=== PATIENT | male | born 1955 | race African-American/Black ===

== ENCOUNTER 2016-10-17 14:02 | Inpatient (IN) | payer OTHER ==
[2016-10-17 14:15] VITALS: BMI 26.6
[2016-10-17] MEDS ORDERED: MAG HYDROX/AL HYDROX/SIMETH 30 ML UNIT-DOSE CUP PO PRN (17:31)
[2016-10-17] MEDS ORDERED: IBUPROFEN 400 MG TABLET (FP) PO PRN (17:31)
[2016-10-17] MEDS ORDERED: MAGNESIUM HYDROX 2400MG/30ML ORAL SUSPENSION 30 ML CUP PO PRN (17:31)
[2016-10-17] MEDS ORDERED: LOPERAMIDE HCL 2 MG CAPSULE PO PRN (17:31)
[2016-10-17] MEDS ORDERED: ACETAMINOPHEN 325 MG TABLET (FP) PO PRN (17:31)
[2016-10-17] MEDS ORDERED: guaiFENesin/D-METHORPHAN HB 10 ML UNIT-DOSE CUPS PO PRN (17:31)
[2016-10-17] MEDS ORDERED: NICOTINE POLACRILEX 2 MG GUM BC PRN (17:31)
[2016-10-17] MEDS ORDERED: MAGNESIUM CITRATE 300 ML BOTTLE PO PRN (17:31)
--- NOTE | 2016-10-17 17:40 | HP ---
Admission [facility] - [facility] Chief Complaint: requesting inpatient rehab after detoxification from heroin at [place] Allergies/Adverse Reactions: Allergies Allergy/AdvReac Type Severity Reaction Status Date / Time cephalexin monohydrate Allergy Severe Hives Verified 10/17/16 16:26 [From Keflex] egg Allergy Severe Hives Verified 10/17/16 16:26 History of Present Illness: 61yo m with h/o chronic opioid dependnece, cocaine abuse and nicotine dependence PMHx HTN, PPD+ CXR neg does ot have cpy with him no h/o seizures or DTS does not use alcohol , marijauan or PCP Exam Limitations: No Limitations - Ebola screening Have you traveled outside of the country in the last 21 days: No Have you had contact with anyone from an Ebola affected area: No Have you been sick,other than usual withdrawal symptoms: No Do you have a fever: No - Review of Systems Constitutional: No Symptoms Reported EENT: reports: Nose Congestion Respiratory: reports: No Symptoms reported Cardiac: reports: No Symptoms Reported GI: reports: Diarrhea, Nausea, Poor Appetite, Poor Fluid Intake, Abdominal cramping : reports: No Symptoms Reported Musculoskeletal: reports: Back Pain, Joint Pain, Muscle Pain, Neck Pain Integumentary: reports: Sweating Neuro: reports: Tremors, Weakness Endocrine: reports: No Symptoms Reported Hematology: reports: No Symptoms Reported Psychiatric: reports: Judgement Intact, Mood/Affect Appropiate, Orientated x3, Anxious, Depressed Other Systems: Reviewed and Negative Patient History - Patient Medical History Hx Anemia: No Hx Asthma: No Hx Chronic Obstructive Pulmonary Disease (COPD): No Hx Cancer: No Hx Cardiac Disorders: No Hx Congestive Heart Failure: No Hx Hypertension: Yes (on verapamil) Hx Hypercholesterolemia: No Hx Pacemaker: No HX Cerebrovascular Accident: No Hx Seizures: No Hx Dementia: No Hx Diabetes: No Hx Gastrointestinal Disorders: No Hx Liver Disease: No Hx Genitourinary Disorders: No Hx Sexually Transmitted Disorders: No Hx Renal Disease (ESRD): No Hx Thyroid Disease: No Hx Human Immunodeficiency Virus (HIV): No Hx Hepatitis C: No Hx Depression: No Hx Suicide Attempt: No Hx Bipolar Disorder: No Hx Schizophrenia: No - Patient Surgical History Hx Abdominal Surgery: Yes (hernia 2001) Anesthesia Reaction: No - PPD History Previous Implant?: Yes Documented Results: Positive w/o proof Implanted On Prior [facility] Admission?: No PPD to be Administered?: No - Reproductive History Patient is a Female of Child Bearing Age (11 -55 yrs old): No Patient : No - Smoking Cessation Smoking history: Current every day smoker Have you smoked in the past 12 months: Yes Aproximately how many cigarettes per day: 6 Hx Chewing Tobacco Use: No Initiated information on smoking cessation: Yes 'Breaking Loose' booklet given: 10/17/16 - Substance & Tx. History Hx Alcohol Use: No Hx Substance Use: Yes Substance Use Type: Cocaine, Heroin, Opiates, Prescribed Hx Substance Use Treatment: Yes - Substances Abused Heroin Route: Inhalation Frequency: Daily Amount used: 8-10 bags Age of first use: 22 Date of Last Use: 11/11/16 Cocaine Route: Inhalation Frequency: 1-3 times last 30 days Amount used: $100/day Age of first use: 37 Date of Last Use: 11/11/16 Family Disease History - Family Disease History Family Disease History: Heart Disease: Father (alcoholic), Mother Admission Physical Exam [facility] - Vital Signs Vital Signs: Vital Signs - 24 hr 10/17/16 14:13 Temperature 97 F L Pulse Rate 78 Respiratory 20 Rate Blood Pressure 168/91 - Physical General Appearance: Yes: Within Normal Limits, No Apparent Distress, Nourished, Appropriately Dressed, Thin HEENTM: Yes: EOMI, Hearing grossly Normal, Normal ENT Inspection, Normocephalic , Normal Voice, SANDOVAL, Pharynx Normal, Nasal Congestion Respiratory: Yes: Within Normal Limits, Chest Non-Tender, Lungs Clear, Normal Breath Sounds, No Respiratory Distress, No Accessory Muscle Use Neck: Yes: Within Normal Limits, No masses,lesions,Nodules, Supple, Trachea in good position Breast: Yes: Breast Exam Deferred Cardiology: Yes: Within Normal Limits, Regular Rhythm, Regular Rate, S1, S2 Abdominal: Yes: Normal Bowel Sounds, Non Tender, Flat, Soft, Increased Bowel Sounds Genitourinary: Yes: Within Normal Limits Back: Yes: Within Normal Limits, Normal Inspection Musculoskeletal: Yes: full range of Motion, Gait Steady, Pelvis Stable, Back pain (muscl;e tenderness on deep palpation) Extremities: Yes: Within Normal Limits, Normal Capillary Refill, Normal Inspection, Normal Range of Motion, Non-Tender Neurological: Yes: data technician II-XII NML intact, Fully Oriented, Alert, Motor Strength 5/5, Normal Response, Depressed Affect Integumentary: Yes: Within Normal Limits, Normal Color, Dry, Warm Lymphatic: Yes: Within Normal Limits - Addiitonal Findings: minor withdrawal sx still present, medically stable - Diagnostic (1) Cocaine abuse Current Visit: Yes Status: Inactive (2) Hypertension Current Visit: Yes Status: Chronic (3) Nicotine dependence Current Visit: Yes Status: Chronic (4) Opioid dependence Current Visit: Yes Status: Chronic Qualifiers: Substance use status: uncomplicated Qualified Code(s): F11.20 - Opioid dependence, uncomplicated Cleared for Admission [facility] - Detox or Rehab Claeared for Rehab Admission: Yes [facility] Breath Alcohol Content Breath Alcohol Content: 0 Urine Drug Screen - Results Drug Screen Negative: No Urine Drug Screen Results: VIOLET-Cocaine, MTD-Methadone
[2016-10-17] MEDS: NICOTINE 14 MG/24 HOURS TOPICAL PATCH TD SCH (19:14)
[2016-10-17] MEDS: CYCLOBENZAPRINE HCL 10 MG TABLET (FP) PO SCH ×2 (19:45→21:30)
[2016-10-17] MEDS: cloNIDine HCL 0.1 MG TABLET PO SCH ×2 (19:46→21:27)
[2016-10-17] MEDS: VERAPAMIL HCL 120 MG TABLET PO SCH ×2 (21:25→21:27)
[2016-10-17] MEDS: THIAMINE HCL 100 MG TABLET (FP) PO SCH (21:25)
[2016-10-17] MEDS: NAPROXEN 500 MG TABLET (FP) PO SCH (21:26)
[2016-10-17 21:42] LABS: URINE APPEARANCE CLEAR; URINE BILIRUBIN NEGATIVE (NEGATIVE); URINE BLOOD NEGATIVE (NEGATIVE); URINE COLOR LT. YELLOW; URINE GLUCOSE (UA) NEGATIVE (NEGATIVE); URINE KETONE NEGATIVE (NEGATIVE); URINE LEUK ESTERASE NEGATIVE (NEGATIVE); URINE NITRITE NEGATIVE (NEGATIVE); URINE PROTEIN NEGATIVE (NEGATIVE); URINE UROBILINOGEN 0.2 mg/dL (0.2-1.0)
[2016-10-17] MEDS ORDERED: cloNIDine HCL 0.1 MG TABLET PO SCH (22:00)
[2016-10-17] MEDS ORDERED: CYCLOBENZAPRINE HCL 10 MG TABLET (FP) PO SCH (22:00)
[2016-10-17] MEDS ORDERED: VERAPAMIL HCL 120 MG TABLET PO SCH (22:00)
[2016-10-18] MEDS: VERAPAMIL HCL 120 MG TABLET PO SCH ×3 (06:43→21:30)
[2016-10-18] MEDS: CYCLOBENZAPRINE HCL 10 MG TABLET (FP) PO SCH ×3 (06:43→21:30)
[2016-10-18] MEDS: NICOTINE 14 MG/24 HOURS TOPICAL PATCH TD SCH (10:10)
[2016-10-18] MEDS: PRENATAL VITAMINS W/ FOLIC ACID TABLET (FP) PO SCH (10:10)
[2016-10-18] MEDS: NAPROXEN 500 MG TABLET (FP) PO SCH ×2 (10:10→21:30)
[2016-10-18] MEDS: PANTOPRAZOLE 40 MG TABLET (FP) PO SCH (10:10)
[2016-10-18] MEDS: cloNIDine HCL 0.1 MG TABLET PO SCH ×2 (10:10→21:30)
[2016-10-18 10:22] LABS: MCH 26.6 pg (25.7-33.7); MCHC 32.3 g/dl (32.0-35.9); MEAN CELL VOLUME 82.3 fl (80-96); MEAN PLT VOLUME 10.2 fl (7.5-11.1); PLATELET COUNT 188 K/MM3 (134-434); RDW 12.8 % (11.9-15.9)
[2016-10-18 10:45] LABS: SICKLE CELL SCREEN NEGATIVE (NEGATIVE)
[2016-10-18 10:46] LABS: ALBUMIN 3.3 g/dl (3.4-5.0); ANION GAP 7 (8-16); CALCIUM 8.3 mg/dL (8.5-10.1); CO2 27 mmol/L (21-32); GLUCOSE,RANDOM 74 mg/dL (74-106); SGOT/AST 27 U/L (15-37); SGPT/ALT 31 U/L (12-78)
[2016-10-18 10:49] LABS: ALK PHOS 61 U/L (45-117); BILIRUBIN,TOTAL 0.2 mg/dL (0.2-1.0); TOT PROT 6.5 g/dl (6.4-8.2)
--- NOTE | 2016-10-18 12:31 | EKG ---
Test Reason : Blood Pressure : / mmHG Vent. Rate : 058 BPM Atrial Rate : 058 BPM P-R Int : 224 ms QRS Dur : 086 ms QT Int : 466 ms P-R-T Axes : -22 042 055 degrees QTc Int : 457 ms SINUS BRADYCARDIA WITH 1ST DEGREE A-V BLOCK ATRIAL ABNORMALITY REPEAT EKG IF CLINICALLY INDICATED NO PREVIOUS ECGS AVAILABLE REPEAT EKG IF CLINICALLY INDICATED Confirmed by AIRAM TALAVERA MD ([id number]) on 10/18/2016 12:31:04 PM Referred By: Elizabeth Bergeron Confirmed By:AIRAM TALAVERA MD
[2016-10-18] MEDS: THIAMINE HCL 100 MG TABLET (FP) PO SCH (21:30)
[2016-10-18] MEDS: diphenhydrAMINE HCL 50 MG CAPSULE PO PRN (21:31)
[2016-10-19] MEDS: CYCLOBENZAPRINE HCL 10 MG TABLET (FP) PO SCH ×3 (06:45→21:28)
[2016-10-19] MEDS: VERAPAMIL HCL 120 MG TABLET PO SCH ×3 (06:45→21:28)
[2016-10-19] MEDS: PANTOPRAZOLE 40 MG TABLET (FP) PO SCH (11:04)
[2016-10-19] MEDS: hydrOXYzine PAMOATE 50 MG CAPSULE (FP) PO PRN (11:04)
[2016-10-19] MEDS: PRENATAL VITAMINS W/ FOLIC ACID TABLET (FP) PO SCH (11:05)
[2016-10-19] MEDS: cloNIDine HCL 0.1 MG TABLET PO SCH ×2 (11:05→21:28)
[2016-10-19] MEDS: NICOTINE 14 MG/24 HOURS TOPICAL PATCH TD SCH (11:06)
[2016-10-19] MEDS: NAPROXEN 500 MG TABLET (FP) PO SCH ×2 (11:06→21:28)
[2016-10-19] MEDS: THIAMINE HCL 100 MG TABLET (FP) PO SCH (21:28)
[2016-10-20] MEDS: CYCLOBENZAPRINE HCL 10 MG TABLET (FP) PO SCH ×3 (06:44→21:40)
[2016-10-20] MEDS: VERAPAMIL HCL 120 MG TABLET PO SCH ×3 (06:44→21:43)
[2016-10-20] MEDS: cloNIDine HCL 0.1 MG TABLET PO SCH ×2 (10:12→21:40)
[2016-10-20] MEDS: NICOTINE 14 MG/24 HOURS TOPICAL PATCH TD SCH (10:13)
[2016-10-20] MEDS: PRENATAL VITAMINS W/ FOLIC ACID TABLET (FP) PO SCH (10:13)
[2016-10-20] MEDS: PANTOPRAZOLE 40 MG TABLET (FP) PO SCH (10:13)
[2016-10-20] MEDS: NAPROXEN 500 MG TABLET (FP) PO SCH ×2 (10:13→21:40)
--- NOTE | 2016-10-20 12:08 | HP ---
Psychiatrist Admission - Data Date of interview: 10/20/16 Admission source: [facility] Identifying data: This is the second 5N inpatient rehabilitation admission for thsi 61 year old single Black male father of 6 residing with his g/f in the [place] and supported on food stamps. Medical History: HTN, LLQ abdominal hernia repair and a positive PPD, smokes 6 cigarettes a day. Psychiatric History: Patient denies, reports he was seen by a psychiatrist while in detox or rehab. treatment as a part of evaluation. However reports has a difficult time at nights to fall and maintain sleep. Physical/Sexual Abuse/Trauma History: Patient denies Vital Signs: Vital Signs - 24 hr 10/19/16 10/19/16 10/20/16 14:56 20:59 00:30 Temperature Pulse Rate 61 66 Respiratory 18 18 Rate Blood Pressure 141/71 154/90 10/20/16 10/20/16 10/20/16 03:30 06:58 11:13 Temperature 98.1 F Pulse Rate 62 65 Respiratory 18 18 18 Rate Blood Pressure 163/93 152/86 Allergies/Adverse Reactions: Allergies Allergy/AdvReac Type Severity Reaction Status Date / Time cephalexin monohydrate Allergy Severe Hives Verified 10/17/16 16:26 [From Keflex] egg Allergy Severe Hives Verified 10/17/16 16:26 Date of last physical exam: 10/17/16 Concur with the findings of this exam: Yes - Substance Abuse/Tx History Hx Alcohol Use: No Hx Substance Use: Yes Substance Use Type: Cocaine (1-3 times a month), Heroin (10 bags a day,age of first use 22) Hx Substance Use Treatment: No - Admission Criteria Previous failed treatment: Yes Poor recovery environment: Yes Comorbidities: No Lacks judgement: Yes Mental Status Exam - Mental Status Exam Alert and Oriented to: Time, Place, Person Cognitive Function: Grossly Intact Patient Appearance: Well Groomed Mood: Irritable Affect: Mood Congruent Patient Behavior: Appropriate, Cooperative Speech Pattern: Clear, Appropriate Voice Loudness: Normal Thought Process: Intact, Goal Oriented Thought Disorder: Not Present Hallucinations: Denies Suicidal Ideation: Denies Homicidal Ideation: Denies Insight/Judgement: Fair Sleep: Poorly, Difficulty falling asleep Appetite: Fair Muscle strength/Tone: Normal Gait/Station: Normal Psychiatric Findings - Problem List ([place] 1, 2,3) (1) Hypertension Current Visit: Yes Status: Chronic (2) Opioid dependence Current Visit: Yes Status: Chronic Qualifiers: Substance use status: uncomplicated Qualified Code(s): F11.20 - Opioid dependence, uncomplicated (3) Cocaine abuse Current Visit: Yes Status: Inactive (4) Nicotine dependence Current Visit: Yes Status: Chronic (5) Insomnia Current Visit: Yes Status: Acute - Initial Treatment Plan Initial Treatment Plan: discussed indications and properties of Belsomra with the patient, was recommended to start , patient agreed.
[2016-10-20] MEDS: SUVOREXANT 10 MG TABLET PO SCH (21:39)
[2016-10-20] MEDS: THIAMINE HCL 100 MG TABLET (FP) PO SCH (21:40)
[2016-10-21] MEDS: VERAPAMIL HCL 120 MG TABLET PO SCH ×3 (06:19→21:33)
[2016-10-21] MEDS: CYCLOBENZAPRINE HCL 10 MG TABLET (FP) PO SCH ×3 (06:19→21:33)
[2016-10-21] MEDS: PRENATAL VITAMINS W/ FOLIC ACID TABLET (FP) PO SCH (10:22)
[2016-10-21] MEDS: NAPROXEN 500 MG TABLET (FP) PO SCH ×2 (10:22→21:34)
[2016-10-21] MEDS: cloNIDine HCL 0.1 MG TABLET PO SCH ×2 (10:22→21:33)
[2016-10-21] MEDS: PANTOPRAZOLE 40 MG TABLET (FP) PO SCH (10:22)
[2016-10-21] MEDS: NICOTINE 14 MG/24 HOURS TOPICAL PATCH TD SCH (10:23)
[2016-10-21] MEDS: SUVOREXANT 10 MG TABLET PO SCH (21:33)
[2016-10-21] MEDS: THIAMINE HCL 100 MG TABLET (FP) PO SCH (21:33)
[2016-10-22] MEDS: VERAPAMIL HCL 120 MG TABLET PO SCH ×3 (06:18→21:36)
[2016-10-22] MEDS: CYCLOBENZAPRINE HCL 10 MG TABLET (FP) PO SCH ×3 (07:36→21:35)
[2016-10-22] MEDS: PRENATAL VITAMINS W/ FOLIC ACID TABLET (FP) PO SCH (10:20)
[2016-10-22] MEDS: cloNIDine HCL 0.1 MG TABLET PO SCH ×2 (10:20→21:35)
[2016-10-22] MEDS: NAPROXEN 500 MG TABLET (FP) PO SCH ×2 (10:20→21:35)
[2016-10-22] MEDS: NICOTINE 14 MG/24 HOURS TOPICAL PATCH TD SCH (10:20)
[2016-10-22] MEDS: PANTOPRAZOLE 40 MG TABLET (FP) PO SCH (10:20)
[2016-10-22] MEDS: SUVOREXANT 10 MG TABLET PO SCH (21:35)
[2016-10-22] MEDS: THIAMINE HCL 100 MG TABLET (FP) PO SCH (21:36)
[2016-10-23] MEDS: VERAPAMIL HCL 120 MG TABLET PO SCH ×3 (06:14→22:12)
[2016-10-23] MEDS: CYCLOBENZAPRINE HCL 10 MG TABLET (FP) PO SCH ×3 (06:15→22:12)
[2016-10-23] MEDS: NICOTINE 14 MG/24 HOURS TOPICAL PATCH TD SCH (10:25)
[2016-10-23] MEDS: PRENATAL VITAMINS W/ FOLIC ACID TABLET (FP) PO SCH (10:25)
[2016-10-23] MEDS: NAPROXEN 500 MG TABLET (FP) PO SCH ×2 (10:25→22:12)
[2016-10-23] MEDS: cloNIDine HCL 0.1 MG TABLET PO SCH ×2 (10:26→22:12)
[2016-10-23] MEDS: PANTOPRAZOLE 40 MG TABLET (FP) PO SCH (10:26)
[2016-10-23] MEDS: SUVOREXANT 10 MG TABLET PO SCH (22:11)
[2016-10-23] MEDS: THIAMINE HCL 100 MG TABLET (FP) PO SCH (22:12)
[2016-10-24] MEDS: P-EPHED 60MG/TRIPROLIDI 2.5MG TABLET PO PRN (00:41)
[2016-10-24] MEDS: VERAPAMIL HCL 120 MG TABLET PO SCH ×3 (06:23→21:31)
[2016-10-24] MEDS: CYCLOBENZAPRINE HCL 10 MG TABLET (FP) PO SCH ×3 (06:23→21:31)
[2016-10-24] MEDS: PANTOPRAZOLE 40 MG TABLET (FP) PO SCH (10:18)
[2016-10-24] MEDS: PRENATAL VITAMINS W/ FOLIC ACID TABLET (FP) PO SCH (10:18)
[2016-10-24] MEDS: cloNIDine HCL 0.1 MG TABLET PO SCH ×2 (10:18→21:31)
[2016-10-24] MEDS: NAPROXEN 500 MG TABLET (FP) PO SCH ×2 (10:18→21:31)
[2016-10-24] MEDS: NICOTINE 14 MG/24 HOURS TOPICAL PATCH TD SCH (10:18)
[2016-10-24] MEDS ORDERED: PT OWN MED DRAWER 7, Y5N ONE (13:09)
[2016-10-24] MEDS: THIAMINE HCL 100 MG TABLET (FP) PO SCH (21:31)
[2016-10-24] MEDS: SUVOREXANT 10 MG TABLET PO SCH (21:31)
[2016-10-25] MEDS: hydrOXYzine PAMOATE 50 MG CAPSULE (FP) PO PRN (03:44)
[2016-10-25] MEDS: CYCLOBENZAPRINE HCL 10 MG TABLET (FP) PO SCH ×3 (06:15→21:35)
[2016-10-25] MEDS: VERAPAMIL HCL 120 MG TABLET PO SCH ×3 (06:15→21:35)
[2016-10-25] MEDS: NAPROXEN 500 MG TABLET (FP) PO SCH ×2 (10:15→21:35)
[2016-10-25] MEDS: PANTOPRAZOLE 40 MG TABLET (FP) PO SCH (10:15)
[2016-10-25] MEDS: NICOTINE 14 MG/24 HOURS TOPICAL PATCH TD SCH (10:15)
[2016-10-25] MEDS: PRENATAL VITAMINS W/ FOLIC ACID TABLET (FP) PO SCH (10:15)
[2016-10-25] MEDS: cloNIDine HCL 0.1 MG TABLET PO SCH ×2 (10:15→21:35)
[2016-10-25] MEDS: SUVOREXANT 10 MG TABLET PO SCH (21:35)
[2016-10-25] MEDS: THIAMINE HCL 100 MG TABLET (FP) PO SCH (21:36)
[2016-10-26] MEDS: hydrOXYzine PAMOATE 50 MG CAPSULE (FP) PO PRN (04:30)
[2016-10-26] MEDS: P-EPHED 60MG/TRIPROLIDI 2.5MG TABLET PO PRN (04:31)
[2016-10-26] MEDS: CYCLOBENZAPRINE HCL 10 MG TABLET (FP) PO SCH ×3 (06:05→22:09)
[2016-10-26] MEDS: VERAPAMIL HCL 120 MG TABLET PO SCH ×3 (06:05→22:09)
[2016-10-26] MEDS: MENTHOL/PHENOL 1 EACH UD MM PRN (06:07)
[2016-10-26] MEDS: PANTOPRAZOLE 40 MG TABLET (FP) PO SCH (10:00)
[2016-10-26] MEDS: PRENATAL VITAMINS W/ FOLIC ACID TABLET (FP) PO SCH (10:00)
[2016-10-26] MEDS: cloNIDine HCL 0.1 MG TABLET PO SCH ×2 (10:00→22:09)
[2016-10-26] MEDS: NAPROXEN 500 MG TABLET (FP) PO SCH ×2 (10:00→22:09)
[2016-10-26] MEDS: NICOTINE 14 MG/24 HOURS TOPICAL PATCH TD SCH (10:01)
[2016-10-26] MEDS: SUVOREXANT 10 MG TABLET PO SCH (22:08)
[2016-10-26] MEDS: THIAMINE HCL 100 MG TABLET (FP) PO SCH (22:09)
[2016-10-27] MEDS: VERAPAMIL HCL 120 MG TABLET PO SCH ×3 (06:21→21:37)
[2016-10-27] MEDS: CYCLOBENZAPRINE HCL 10 MG TABLET (FP) PO SCH ×3 (06:21→21:37)
[2016-10-27] MEDS: cloNIDine HCL 0.1 MG TABLET PO SCH ×2 (10:46→21:37)
[2016-10-27] MEDS: NAPROXEN 500 MG TABLET (FP) PO SCH ×2 (10:46→21:38)
[2016-10-27] MEDS: NICOTINE 14 MG/24 HOURS TOPICAL PATCH TD SCH (10:46)
[2016-10-27] MEDS: PANTOPRAZOLE 40 MG TABLET (FP) PO SCH (10:46)
[2016-10-27] MEDS: PRENATAL VITAMINS W/ FOLIC ACID TABLET (FP) PO SCH (10:46)
[2016-10-27] MEDS: SUVOREXANT 10 MG TABLET PO SCH (21:37)
[2016-10-27] MEDS: THIAMINE HCL 100 MG TABLET (FP) PO SCH (21:38)
[2016-10-27] MEDS: P-EPHED 60MG/TRIPROLIDI 2.5MG TABLET PO PRN (23:18)
[2016-10-28] MEDS: CYCLOBENZAPRINE HCL 10 MG TABLET (FP) PO SCH ×3 (06:10→21:32)
[2016-10-28] MEDS: VERAPAMIL HCL 120 MG TABLET PO SCH ×3 (06:10→21:32)
[2016-10-28] MEDS: PANTOPRAZOLE 40 MG TABLET (FP) PO SCH (10:16)
[2016-10-28] MEDS: NAPROXEN 500 MG TABLET (FP) PO SCH ×2 (10:16→21:32)
[2016-10-28] MEDS: PRENATAL VITAMINS W/ FOLIC ACID TABLET (FP) PO SCH (10:16)
[2016-10-28] MEDS: cloNIDine HCL 0.1 MG TABLET PO SCH ×2 (10:16→21:32)
[2016-10-28] MEDS: NICOTINE 14 MG/24 HOURS TOPICAL PATCH TD SCH (10:17)
[2016-10-28] MEDS: THIAMINE HCL 100 MG TABLET (FP) PO SCH (21:32)
[2016-10-29] MEDS: P-EPHED 60MG/TRIPROLIDI 2.5MG TABLET PO PRN (01:19)
[2016-10-29] MEDS: MENTHOL/PHENOL 1 EACH UD MM PRN (01:19)
[2016-10-29] MEDS: CYCLOBENZAPRINE HCL 10 MG TABLET (FP) PO SCH ×3 (06:05→21:29)
[2016-10-29] MEDS: VERAPAMIL HCL 120 MG TABLET PO SCH ×3 (06:05→21:30)
[2016-10-29] MEDS: PANTOPRAZOLE 40 MG TABLET (FP) PO SCH (10:17)
[2016-10-29] MEDS: NAPROXEN 500 MG TABLET (FP) PO SCH ×2 (10:17→21:30)
[2016-10-29] MEDS: cloNIDine HCL 0.1 MG TABLET PO SCH ×2 (10:17→21:29)
[2016-10-29] MEDS: PRENATAL VITAMINS W/ FOLIC ACID TABLET (FP) PO SCH (10:17)
[2016-10-29] MEDS: NICOTINE 14 MG/24 HOURS TOPICAL PATCH TD SCH (10:17)
[2016-10-29] MEDS: THIAMINE HCL 100 MG TABLET (FP) PO SCH (21:29)
[2016-10-29] MEDS: diphenhydrAMINE HCL 50 MG CAPSULE PO PRN (21:30)
[2016-10-30] MEDS: CYCLOBENZAPRINE HCL 10 MG TABLET (FP) PO SCH ×3 (05:57→21:18)
[2016-10-30] MEDS: VERAPAMIL HCL 120 MG TABLET PO SCH ×3 (05:57→21:18)
[2016-10-30] MEDS: PANTOPRAZOLE 40 MG TABLET (FP) PO SCH (10:39)
[2016-10-30] MEDS: cloNIDine HCL 0.1 MG TABLET PO SCH ×2 (10:39→21:18)
[2016-10-30] MEDS: PRENATAL VITAMINS W/ FOLIC ACID TABLET (FP) PO SCH (10:39)
[2016-10-30] MEDS: NAPROXEN 500 MG TABLET (FP) PO SCH ×2 (10:39→21:18)
[2016-10-30] MEDS: NICOTINE 14 MG/24 HOURS TOPICAL PATCH TD SCH (10:40)
[2016-10-30] MEDS: P-EPHED 60MG/TRIPROLIDI 2.5MG TABLET PO PRN (20:57)
[2016-10-30] MEDS: MENTHOL/PHENOL 1 EACH UD MM PRN (20:58)
[2016-10-30] MEDS: THIAMINE HCL 100 MG TABLET (FP) PO SCH (21:18)
[2016-10-31] MEDS: diphenhydrAMINE HCL 50 MG CAPSULE PO PRN (01:05)
[2016-10-31] MEDS: VERAPAMIL HCL 120 MG TABLET PO SCH (06:07)
[2016-10-31] MEDS: CYCLOBENZAPRINE HCL 10 MG TABLET (FP) PO SCH (06:07)
[2016-10-31 06:51] VITALS: BP 143/86; PULSE 77; TEMP 98.1
--- NOTE | 2016-10-31 09:34 | PN ---
Psychiatric Progress Note Vital Signs: Vital Signs Period Temp Pulse Resp BP Sys/Udnn Pulse Ox Last 24 Hr 98.1 F-98.6 F 77-84 16-18 132-143/70-86 Date of Session: 10/31/16 Chief Complaint:: discharge visit HPI: The patient has addressed opioid, nicotine dependence cocaine abuse ocmorbid insomnia. ROS: HTN medically managed. Current Medications: Active Medications Generic Name Dose Route Start Last Admin Trade Name Freq PRN Reason Stop Dose Admin Acetaminophen 650 mg 10/17/16 17:31 10/17/16 19:46 Tylenol - PO 650 mg Q4H PRN Administration PAIN Al Hydroxide/Mg Hydroxide 30 ml 10/17/16 17:31 10/31/16 01:05 Mylanta Oral Suspension - PO 30 ml Q6H PRN Administration DYSPEPSIA Clonidine 0.1 mg 10/17/16 19:30 10/30/16 21:18 Catapres - PO 0.1 mg BID MCKENZIE Administration Cyclobenzaprine HCl 10 mg 10/17/16 19:45 10/31/16 06:07 Flexeril - PO 10 mg TID MCKENZIE Administration Diphenhydramine HCl 50 mg 10/17/16 17:31 10/31/16 01:05 Benadryl - PO 50 mg HSMR1 PRN Administration INSOMNIA Eucalyptus/Menthol/Phenol/Sorbitol 1 each 10/17/16 17:31 10/30/16 20:58 Cepastat Lozenge - MM 1 each Q4H PRN Administration SORE THROAT Guaifenesin 10 ml 10/17/16 17:31 10/26/16 06:07 Robitussin Dm - PO 10 ml Q6H PRN Administration COUGH Hydroxyzine Pamoate 50 mg 10/17/16 17:31 10/26/16 04:30 Vistaril - PO 50 mg Q4H PRN Administration AGITATION Loperamide HCl 4 mg 10/17/16 17:31 Imodium - PO Q6H PRN DIARRHEA Magnesium Citrate 300 ml 10/17/16 17:31 Citroma - PO Q48H PRN CONSTIPATION Magnesium Hydroxide 30 ml 10/17/16 17:31 Milk Of Magnesia - PO DAILY PRN CONSTIPATION Naproxen 500 mg 10/17/16 22:00 10/30/16 21:18 Naprosyn - PO 500 mg BID MCKENZIE Administration Nicotine 14 mg 10/17/16 17:45 10/30/16 10:40 Nicoderm Patch - TD Not Given DAILY MCKENZIE Nicotine Polacrilex 2 mg 10/17/16 17:31 Nicorette Gum - BC Q2H PRN NICOTINE REPLACEMENT RX Pantoprazole Sodium 40 mg 10/18/16 10:00 10/30/16 10:39 Protonix - PO 40 mg DAILY MCKENZIE Administration Multivit/Folic Acid/Iron 1 tab 10/18/16 10:00 10/30/16 10:39 Vitamins ([facility]) - PO 1 tab DAILY MCKENZIE Administration Pseudoephedrine/Triprolidine 1 combo 10/17/16 17:31 10/30/16 20:57 Actifed - PO 1 combo TID PRN Administration NASAL CONGESTION Thiamine HCl 100 mg 10/17/16 22:00 10/30/16 21:18 Vitamin B1 - PO 100 mg HS MCKENZIE Administration Verapamil HCl 120 mg 10/17/16 19:30 10/31/16 06:07 Verapamil Hcl PO 120 mg TID MCKENZIE Administration Current Side Effect: No Lab tests ordered: No Lab tests reviewed: Yes Provider note:: Patient has completed today this rehabilitation treatment and met his goals, will continue to address issues at [facility] inpatient treatment. Patient undestands the negative impatc of his addiction and motivated to continue maintain abstinence. Patient was encouraged to use alternative ways to cope with life stressors and utilize all supports available to prevent relapses , patient is stable for discharge today. Total face to face time:: 20 Mental Status Exam - Mental Status Exam Alert and Oriented to: Time, Place, Person Cognitive Function: Grossly Intact Patient Appearance: Well Groomed Mood: Hopeful Affect: Appropriate, Mood Congruent Patient Behavior: Appropriate, Cooperative Speech Pattern: Clear, Appropriate Voice Loudness: Normal Thought Process: Intact, Goal Oriented Thought Disorder: Not Present Hallucinations: Denies Suicidal Ideation: Denies Homicidal Ideation: Denies Insight/Judgement: Fair Sleep: Fair Appetite: Fair Muscle strength/Tone: Normal Gait/Station: Normal Psychiatric Treatment Plan - Problem List (2) Opioid dependence Qualifiers: Substance use status: uncomplicated Qualified Code(s): F11.20 - Opioid dependence, uncomplicated
[2016-10-31] MEDS: PRENATAL VITAMINS W/ FOLIC ACID TABLET (FP) PO SCH (10:01)
[2016-10-31] MEDS: cloNIDine HCL 0.1 MG TABLET PO SCH (10:01)
[2016-10-31] MEDS: NAPROXEN 500 MG TABLET (FP) PO SCH (10:01)
[2016-10-31] MEDS: NICOTINE 14 MG/24 HOURS TOPICAL PATCH TD SCH (10:01)
[2016-10-31] MEDS: PANTOPRAZOLE 40 MG TABLET (FP) PO SCH (10:01)
== END 2016-10-31 10:15 | disposition home or self-care (01) | DRG 772 ==
LOC: YASAS 14:02 → Y5N 17:04
PROVIDERS: ADMIT Psychiatry & Neurology Psychiatry; ATTEND Psychiatry & Neurology Psychiatry
PROC: HZ42ZZZ Group Counseling for Substance Abuse Treatment, Cognitive-Behavioral (ICD-10-PCS; principal; 2016-10-17)
DX: F11.20 Opioid dependence, uncomplicated (principal); F14.10 Cocaine abuse, uncomplicated; F17.210 Nicotine dependence, cigarettes, uncomplicated; G47.00 Insomnia, unspecified; I10 Essential (primary) hypertension
CPT/HCPCS: 36415; 71020-TC; 80053; 81003; 85027; 85660; 86593; 86803; 93005; 93010